=== PATIENT | male | born 1980 | race African-American/Black ===

== ENCOUNTER 2017-05-10 23:45 | Emergency (ER) | payer SELFPAY ==
[2017-05-11 00:08] VITALS: BP 119/78; PULSE 74; TEMP 98.4; BMI 33.4
--- NOTE | 2017-05-11 01:15 | PDOC ---
History of Present Illness - General Chief Complaint: Pain Stated Complaint: PAIN Time Seen by Provider: 05/11/17 01:13 History Source: Patient Exam Limitations: No Limitations - History of Present Illness Initial Comments: 05/11/17 01:14 36-year-old male presents to the emergency department complaining of left hip pain. Pain is described as 3/10 dull nonradiating intermittent discomfort. The pain is exacerbated on touch and alleviated at rest. Patient states he slipped and fell onto his left hip yesterday. He noticed his left hip "popped out" and he was able to reduce it by turning. Patient states when his left hip "popped out" he was still able to ambulate and bend his knee. Patient denies any head injuries, headache, dizziness, lightheadedness, neck pain, back pains, chest pain, shortness of breath, abdominal pain. Past History - Past Medical History Allergies/Adverse Reactions: Allergies Allergy/AdvReac Type Severity Reaction Status Date / Time No Known Allergies Allergy Verified 05/11/17 00:08 Home Medications: Ambulatory Orders NK [No Known Home Medication] 05/11/17 COPD: No Other medical history: denies - Suicide/Smoking/Psychosocial Hx Smoking History: Never smoked Review of Systems - Review of Systems Able to Perform ROS?: Yes Comments:: 05/11/17 01:34 CONSTITUTIONAL: Absent: fever, chills, diaphoresis, generalized weakness, malaise, loss of appetite HEENT: Absent: rhinorrhea, nasal congestion, throat pain, throat swelling, difficulty swallowing, mouth swelling, ear pain, eye pain, visual Changes CARDIOVASCULAR: Absent: chest pain, loss of consciousness, palpitations, irregular heart rate, peripheral edema RESPIRATORY: Absent: cough, shortness of breath, dyspnea with exertion, orthopnea, wheezing, stridor, hemoptysis GASTROINTESTINAL: Absent: abdominal pain, abdominal distension, nausea, vomiting, diarrhea, constipation, melena, hematochezia GENITOURINARY: Absent: dysuria, frequency, urgency, hesitancy, hematuria, flank pain, genital pain MUSCULOSKELETAL: +left hip pain Absent: myalgia, arthralgia, joint swelling SKIN: Absent: rash, itching, pallor Is the patient limited [place] proficient: No *Physical Exam - Vital Signs Last Vital Signs Temp Pulse Resp BP Pulse Ox 98.4 F 74 20 119/78 98 05/11/17 00:03 05/11/17 00:03 05/11/17 00:03 05/11/17 00:03 05/11/17 00:03 - Physical Exam Comments: 05/11/17 01:35 GENERAL: Well developed, well nourished. Awake and alert. No acute distress. HEENT: Normocephalic, atraumatic. PERRLA, EOMI. No conjunctival pallor. Sclera are non- icteric. Moist mucous membranes. Oropharynx is clear. NECK: Supple. Full ROM. No JVD. Carotid pulses 2+ and symmetric, without bruits. No thyromegaly. No lymphadenopathy. CARDIOVASCULAR: Regular rate and rhythm. No murmurs, rubs, or gallops. Distal pulses are 2+ and symmetric. PULMONARY: No evidence of respiratory distress. Lungs clear to auscultation bilaterally. No wheezing, rales or rhonchi. ABDOMINAL: Soft. Non-tender. Non-distended. No rebound or guarding. No organomegaly. Normoactive bowel sounds. MUSCULOSKELETAL Left hip: F.R.O>M. Neg pain on palp neg obv defomities left knee F.R.O.M. Neg pain on palp Pt ambulating w/o difficulty Normal range of motion at all joints. No bony deformities or tenderness. No CVA tenderness. EXTREMITIES: No cyanosis. No clubbing. No edema. No calf tenderness. SKIN: Warm and dry. Normal capillary refill. No rashes. No jaundice. ED Treatment Course - RADIOLOGY Radiology Studies Ordered: Category Date Time Status HIP-LEFT [RAD] Stat Radiology 05/11/17 01:13 Ordered Radiograph Interpretation: 05/11/17 01:36 xray left hip neg fx/dislocations *DC/Admit/Observation/Transfer Diagnosis at time of Disposition: Hip pain Qualifiers: Laterality: left Qualified Code(s): M25.552 - Pain in left hip - Discharge Dispostion Disposition: HOME Condition at time of disposition: Stable Admit: No - Referrals Referrals: Bharathi Jeffrey MD [Staff Physician] - - Patient Instructions Additional Instructions: Follow up with orthopedic surgeon this week Return to the ER for severe/persistent/worsening symptoms - Post Discharge Activity Forms/Work/School Notes: Back to Work
== END 2017-05-11 02:28 | disposition home or self-care (01) ==
LOC: JER 23:45
DX: M25.552 Pain in left hip (principal)
CPT/HCPCS: 73502-TC-LT; 99282-25